=== PATIENT | male | born 1985 | race Caucasian/White ===

== ENCOUNTER 2017-04-14 09:28 | Day surgery (SDC) | payer BC ==
[~2017-04-14 09:28] MED LIST: Buffered Lidocaine 0.9% SYRIN* 5 ML/SYR SYRINGE INTRADERM ONE; Sodium Citrate/Citric Acid* 15 ML UDC ONE; Sodium Citrate/Citric Acid* 15 ML UDC PO ONE
[2017-04-14] MEDS ORDERED: ceFAZolin 2 GM PREMIX (*) 2 GM/50 ML BAG IVPB ONE (09:42)
[2017-04-14] MEDS ORDERED: Sodium Bicarbonate 8.4% SYR* 10 ML SYRINGE ONE (10:41)
[2017-04-14] MEDS ORDERED: Lidocaine 2% PF* 10 ML AMP ONE (10:41)
[2017-04-14] MEDS ORDERED: Lidocaine 2% PF * 5 ML VIAL ONE ×2 (10:41→10:49)
[2017-04-14] MEDS ORDERED: EPINEPHrine AMP 1 MG/ML ONE (10:41)
[2017-04-14] MEDS ORDERED: Propofol* 10 MG/ML 20 ML BTL IV PUSH ONE (10:49)
[2017-04-14] MEDS ORDERED: Midazolam* 1 MG/ML 2 ML VIAL (2 MG) ONE (10:50)
[2017-04-14] MEDS ORDERED: fentaNYL* 50 MCG/ML 2 ML VIAL (100 MCG VIAL) ONE ×2 (10:50→13:52)
[2017-04-14] MEDS ORDERED: Ondansetron INJ* 2 MG/ML VIAL IV PRN (11:02)
[2017-04-14] MEDS ORDERED: Naloxone* 0.4 MG/ML 1 ML VIAL IV PRN (11:02)
[2017-04-14] MEDS: fentaNYL* 50 MCG/ML 2 ML VIAL (100 MCG VIAL) IV PRN ×2 (13:56→14:02)
[2017-04-14] MEDS ORDERED: HYDROcodone/ACETAMIN 5-325 MG* 1 TAB ONE (14:00)
[2017-04-14] MEDS ORDERED: Ondansetron INJ* 2 MG/ML VIAL ONE (14:28)
[2017-04-14 15:16] VITALS: BP 147/51
== END 2017-04-14 15:08 | disposition home or self-care (01) ==
LOC: OREAST 09:28
PROVIDERS: ATTEND Plastic Surgery
DX: N62 Hypertrophy of breast (principal)
CPT/HCPCS: 88305; A9270-GY; J0171; J0690; J2001; J2250; J2405; J2704; J3010

== ENCOUNTER 2017-09-13 07:09 | Emergency (ER) | payer BC ==
[2017-09-13 07:18] VITALS: BP 141/75
--- NOTE | 2017-09-13 07:34 | UC ---
Lower Extremity/Ankle HPI - HPI Summary HPI Summary: DROPPED A 200 POUND AXLE SHAFT ON HIS RIGHT GREAT TOE YESTERDAY 11 AM. HAS DEVELOPED A SUBUNGUAL HEMATOMA AND HAS A SUPERFICIAL LACERATION JUST PROXIMAL TO THE NAILBED. IS COMPLAINING OF SIGNIFICANT DISCOMFORT AND IS REQUESTING NAIL TREPHINATION. LAST TETANUS 01/18/2012. - History of Current Complaint Chief Complaint: UCLowerExtremity Stated Complaint: TOE INJURY Time Seen by Provider: 09/13/17 07:20 Hx Obtained From: Patient Onset/Duration: Sudden Onset, Lasting Hours, Still Present Severity Initially: Moderate Severity Currently: Moderate Pain Intensity: 6 Pain Scale Used: 0-10 Numeric Aggravating Factor(s): Standing, Ambulation Alleviating Factor(s): Rest Able to Bear Weight: Yes - Allergies/Home Medications Allergies/Adverse Reactions: Allergies Allergy/AdvReac Type Severity Reaction Status Date / Time No Known Allergies Allergy Verified 09/13/17 07:18 Home Medications: Home Medications Ibuprofen 800 mg PO ONCE PRN 09/13/17 [History Confirmed 09/13/17] PMH/Surg Hx/FS Hx/Imm Hx Previously Healthy: Yes - Surgical History Surgical History: None Surgery Procedure, Year, and Place: TUBE PLACED IN BILAT EARS A KID. LYMPH NODE REMOVED FROM NECK TEENAGER IN md OFFICE - Family History Known Family History: Positive: Other - [place] (grandfather and uncle, tobacco- related [place]) Negative: Hypertension - Social History Alcohol Use: Daily Substance Use Type: None Smoking Status (MU): Never Smoked Tobacco - Immunization History Most Recent Tetanus Shot: 2005 Review of Systems Constitutional: Negative Skin: Other - right great toe laceration, subungual hematoma Respiratory: Negative Cardiovascular: Negative Gastrointestinal: Negative All Other Systems Reviewed And Are Negative: Yes Physical Exam Triage Information Reviewed: Yes Appearance: Well-Appearing, No Pain Distress, Well-Nourished Vital Signs: Initial Vital Signs Temp 98.4 F 09/13/17 07:14 Pulse 74 09/13/17 07:14 Resp 18 09/13/17 07:14 BP 141/75 09/13/17 07:14 Pulse Ox 97 09/13/17 07:14 Vital Signs Reviewed: Yes Eyes: Positive: Conjunctiva Clear ENT: Positive: Hearing grossly normal Neck: Positive: Supple Respiratory: Positive: No respiratory distress, No accessory muscle use Cardiovascular: Positive: Pulses Normal Abdomen Description: Positive: Soft Musculoskeletal: Positive: ROM Intact, Edema @ - RIGHT GREAT TOE Neurological: Positive: Alert Psychological: Positive: Age Appropriate Behavior Skin: Positive: Other - 0.8CM LINEAR SUPERFICIAL ABRASION JUST PROXIMAL TO NAILBED RIGHT GREAT TOE Lower Extremity Course/Dx - Course Course Of Treatment: RIGHT GREAT TOENAIL WAS PREPPED WITH BETADINE. ELECTROCAUTERY USED FOR NAIL TREPHINATION WITH IMMEDIATE BLOODY DISCHARGE. PATIENT FELT IMMEDIATE RELIEF. NAIL DRESSED WITH NONSTICK BANDAGE AND GAUZE. TDAP BOOSTED. - Differential Dx/Diagnosis Provider Diagnoses: 1. RIGHT GREAT TOE SUBUNGUAL HEMATOMA - NAIL TREPHINATION. 2. TDAP BOOSTER Discharge - Sign-Out/Discharge Documenting (check all that apply): Discharge/Admit/Transfer - Discharge Plan Condition: Stable Disposition: HOME Patient Education Materials: Subungual Hematoma (ED), Abrasion (ED) Referrals: No Primary Care Phys,NOPCP [Primary Care Provider] - Additional Instructions: YOU MAY CONTINUE TO HAVE DRAINAGE OVER THE NEXT 1-2 DAYS. KEEP THE NAIL CLEAN AND COVERED WITH A DRESSING. CHANGE IT AT LEAST ONCE DAILY AND NEEDED IF IT BECOMES SOAKED THROUGH OR WET. IBUPROFEN NEEDED FOR DISCOMFORT. SEEK FOLLOW-UP IF YOU DEVELOP SPREADING REDNESS OF THE SKIN, PURULENT DRAINAGE, FEVER, INCREASED PAIN OR ANY OTHER CONCERNING SYMPTOMS. YOUR X-RAY TODAY SHOWS A POSSIBLE FRACTURE IN ONE OF THE ACCESSORY BONES AT THE BASE OF YOUR BIG TOE. THEY ARE UNABLE TO DETERMINE IF THIS IS A NEW OR OLD BUT GIVEN YOUR LACK OF TENDERNESS IN THIS AREA I DO NOT THINK IT IS FROM YOUR CURRENT INJURY. NO INTERVENTION INDICATED AT THIS TIME. FOLLOW-UP WITH ORTHOPEDICS IF YOUR TOE PAIN IS NOT IMPROVING EXPECTED. TETANUS IMMUNIZATION GIVEN (TDAP): You have been given an immunization against tetanus. Please record this in your records. In general, a booster is needed only once every 10 years. The tetanus shot protects against tetanus or "lockjaw," which is a complication of certain wound infections (the tetanus shot cannot protect against the actual infection). The immunization site may become warm and red due to local reaction. If this occurs, apply warm compresses and take aspirin or ibuprofen to reduce inflammation and discomfort. Return for evaluation if the reaction becomes severe. - Billing Disposition and Condition Condition: STABLE Disposition: Home
[2017-09-13] MEDS ORDERED: Tetan/Diph/Pertus SYR(Tdap)* 0.5 ML SYR(BOOSTRIX) use SYR IM ONE (07:39)
--- NOTE | 2017-09-13 08:20 | RAD ---
INDICATION: Right great toe injury. TECHNIQUE: 3 views of the right great toe were obtained. FINDINGS: There is soft tissue swelling adjacent to the distal phalanx. The bones are in normal alignment. There is a fracture of the medial sesamoid bone indeterminate although likely old. Joint spaces appear maintained. IMPRESSION: FRACTURE OF THE MEDIAL SESAMOID BONE, AGE INDETERMINATE ALTHOUGH LIKELY OLD. RECOMMEND CORRELATION FOR POINT TENDERNESS.
== END 2017-09-13 08:39 | disposition home or self-care (01) ==
LOC: UCEAST 07:09
DX: S90.211A Contusion of right great toe with damage to nail, initial encounter (principal); S90.411A Abrasion, right great toe, initial encounter; W20.8XXA Other cause of strike by thrown, projected or falling object, initial encounter; Y93.9 Activity, unspecified; Y92.9 Unspecified place or not applicable; Z23 Encounter for immunization; Z80.9 Family history of malignant neoplasm, unspecified
CPT/HCPCS: 11740; 90715; 99212; G0463